=== PATIENT | male | born 1950 | race Hispanic/Latino ===

== ENCOUNTER → 2017-04-18 | Outpatient (CLI) | payer OTHER | END | disposition home or self-care (01) | LOC: OIH 08:39 | PROVIDERS: ATTEND Family Medicine | DX: Z00.00 Encounter for general adult medical examination without abnormal findings (principal) | CPT/HCPCS: 71046 ==

== ENCOUNTER → 2017-12-05 | Outpatient (CLI) | payer OTHER | END | disposition home or self-care (01) | LOC: RAH 13:19 | PROVIDERS: ATTEND Family Medicine | DX: D32.0 Benign neoplasm of cerebral meninges (principal); G93.89 Other specified disorders of brain | CPT/HCPCS: 70551 ==